=== PATIENT | female | born 1955 | race Caucasian/White ===

== ENCOUNTER 2017-02-27 13:33 | Emergency (ER) | payer BC, OTHER ==
[~2017-02-27] VITALS: Ht 157.5 cm; Wt 45.5 kg
[~2017-02-27 13:33] MED LIST: LORTA5 PO
[2017-02-27 13:34] VITALS: BP 196/91; PULSE 101; RESP 20; TEMP 98.4; O2SAT 96
--- NOTE | 2017-02-27 14:25 | RADRPT ---
EXAM DATE/TIME: 02/27/2017 14:13 [facility] COMPARISON: No previous studies available for comparison. INDICATIONS : Short of breath. MEDICAL HISTORY : None. SURGICAL HISTORY : None. ENCOUNTER: Initial ACUITY: 3 days PAIN SCORE: 0/10 LOCATION: Bilateral chest FINDINGS: Emphysematous changes are noted bilaterally. No infiltrate is noted. No pulmonary vascular congestion is noted. Bibasilar pleural thickening and/or tiny pleural effusions are noted. CONCLUSION: 1. Emphysematous changes bilaterally. 2. Pleural thickening and/or tiny pleural effusions bilaterally. 3. No focal infiltrate or pulmonary vascular congestion. Narayan Barraza MD on February 27, 2017 at 14:21 Board Certified Radiologist. This report was verified electronically.
[2017-02-27] MEDS ORDERED: predniSONE 20 MG TAB PO ONE (15:00)
--- NOTE | 2017-02-27 15:04 | PD ---
HPI Chief Complaint: Cold / Flu Symptoms Time Seen by Provider: 14:48 Travel History International Travel<30 days: No Contact w/Intl Traveler<30days: No Traveled to known affect area: No History of Present Illness HPI 61-year-old female presents the emergency department with chills, cough, shortness of breath with productive cough over the past 3 days. Patient states she was fine and then all of a sudden she was sick starting Saturday. Patient has orthopnea with inability to lay flat due to her cough. She denies significant chest pain however. She has no nausea or vomiting or upper respiratory symptoms. She is a long-term smoker who continues to smoke occasionally. She states she has never had to take prednisone or inhalers in the past. Vital signs are stable except for a pulse of 101, and mild hypertension. O2 sat is 96% on room air. Patient is able to speak in short sentences. Chest x- ray was ordered in triage. She has no known drug allergies. PFSH Past Medical History Cancer: No Cardiovascular Problems: No Diabetes: No Diminished Hearing: No Endocrine: No Genitourinary: No Hepatitis: No Hiatal Hernia: No Immune Disorder: No Musculoskeletal: No Neurologic: No Psychiatric: No Reproductive: No Respiratory: No Thyroid Disease: No Menopausal: Yes Past Surgical History Abdominal Surgery: Yes (LAP. [place], PARTIAL BOWEL RESECT./ COLOSTOMY) AICD: No Cholecystectomy: Yes (APR 02, 2013) Joint Replacement: No Pacemaker: No Social History Alcohol Use: No Tobacco Use: Yes Substance Use: No Allergies-Medications (Allergen,Severity, Reaction): Coded Allergies: No Known Allergies (Unverified , 08/18/13) Reported Meds & Prescriptions Reported Meds & Active Scripts Active Ventolin Hfa 18 GM Inh (Albuterol Sulfate) 90 Mcg/Act Aer 2 Puff INH Q4-6H PRN Prednisone 20 Mg Tab 20 Mg PO BID 7 Days Azithromycin 500 Mg Tab 500 Mg PO DAILY Reported Hydrocodone/Acetaminophen 5 mg/325 mg Acetaminophen 325/5 Hydrocodone Tab 1 Tab PO Q4H PRN Review of Systems Except as stated in HPI: all other systems reviewed are Neg General / Constitutional: Positive: Chills, No: Fever Eyes: No: Visual changes HENT: No: Headaches Cardiovascular: No: Chest Pain or Discomfort Respiratory: Positive: Cough, Shortness of Breath, Wheezing, Orthopnea, Other ( purulent mucus with productive cough), No: Sneezing, Hemoptysis, Stridor, Night Sweats, Pleuritic Pain Gastrointestinal: No: Abdominal Pain Genitourinary: No: Dysuria Musculoskeletal: No: Pain Skin: No Rash Neurologic: No: Weakness Psychiatric: No: Depression Endocrine: No: Polydipsia Hematologic/Lymphatic: No: Easy Bruising Physical Exam Narrative GENERAL: Patient appears in no obvious distress. SKIN: Warm and dry. Mild pallor. Normal turgor. HEAD: Atraumatic. Normocephalic. EYES: Pupils equal and round. No scleral icterus. No injection or drainage. ENT: No nasal bleeding or discharge. Mucous membranes pink and moist. Pharynx is clear. Airway is patent. NECK: Trachea midline. No JVD. Supple and nontender. CARDIOVASCULAR: Regular rate and rhythm. No murmurs gallops or rubs. RESPIRATORY: No accessory muscle use. Diffuse wheezes and rhonchi throughout To auscultation. Breath sounds equal bilaterally. GASTROINTESTINAL: Abdomen soft, non-tender, nondistended. Hepatic and splenic margins not palpable. MUSCULOSKELETAL: Extremities without clubbing, cyanosis, or edema. No obvious deformities. NEUROLOGICAL: Awake and alert. No obvious cranial nerve deficits. Motor grossly within normal limits. Five out of 5 muscle strength in the arms and legs. Normal speech. PSYCHIATRIC: Appropriate mood and affect; insight and judgment normal. Data Data Last Documented VS Vital Signs Date Time Temp Pulse Resp B/P (MAP) Pulse Ox O2 Delivery O2 Flow Rate FiO2 02/27/17 13:34 98.4 101 20 196/91 (126) 96 Room Air Orders Orders Chest, Pa & Lat (02/27/17 ) Ecg Monitoring (02/27/17 14:52) Oximetry (02/27/17 14:52) Oxygen Administration (02/27/17 14:52) Albuterol-Ipratropium Neb (Duoneb Neb) (02/27/17 15:00) Prednisone (Deltasone) (02/27/17 15:00) Influenzae A/B Antigen (02/27/17 14:52) Ceftriaxone Inj (Rocephin Inj) (02/27/17 15:00) [facility] Medical Decision Making Medical Screen Exam Complete: Yes Emergency Medical Condition: Yes Medical Record Reviewed: Yes Differential Diagnosis Influenza. Bronchitis. Pneumonia. Wheezing. Narrative Course Patient is medically stable at time of exam. Labs are ordered including only rapid influenza. Patient is given 60 mg prednisone by mouth as well as DuoNeb 3. Patient is given 1000 mg Rocephin IV. Patient is given 500 mg of azithromycin by mouth. Chest x-ray ordered in triage shows: 1. Emphysematous changes bilaterally. 2. Pleural thickening and/or tiny pleural effusions bilaterally. 3. No focal infiltrate or pulmonary vascular congestion. Rapid influenza is negative. Patient is felt to be stable for discharge. Patient will be continued on prednisone 20 mg twice a day 7 days. Patient also given albuterol metered-dose inhaler. 2 puffs every 4-6 hours. Patient also continued on azithromycin 500 mg daily for 5 days. Patient should quit smoking immediately. Patient should follow with her primary care physician or return to emergency Department with worsening symptoms as needed. Diagnosis Primary Impression: Pneumonia Qualified Codes: J18.9 - Pneumonia, unspecified organism Additional Impression: COPD with acute exacerbation Referrals: Primary Care Physician Patient Instructions: Acute Bronchitis (ED), General Instructions, How to Use a Metered-Dose Inhaler (ED) Additional Instructions: Patient is given 1000 mg Rocephin IV. Patient is given 500 mg of azithromycin by mouth. Chest x-ray ordered in triage shows: 1. Emphysematous changes bilaterally. 2. Pleural thickening and/or tiny pleural effusions bilaterally. 3. No focal infiltrate or pulmonary vascular congestion. Rapid influenza is negative. Patient is felt to be stable for discharge. Patient will be continued on prednisone 20 mg twice a day 7 days. Patient also given albuterol metered-dose inhaler. 2 puffs every 4-6 hours. Patient also continued on azithromycin 500 mg daily for 5 days. Patient should quit smoking immediately. Patient should follow with her primary care physician or return to emergency Department with worsening symptoms as needed. Med/Other Pt SpecificInfo: Prescription(s) given Scripts Albuterol 18 GM Inh (Ventolin Hfa 18 GM Inh) 90 Mcg/Act Aer 2 PUFF INH Q4-6H Y for SHORTNESS OF BREATH, #1 INHALER 0 Refills Prov: Yaneth Hussein MD 02/27/17 Prednisone (Prednisone) 20 Mg Tab 20 MG PO BID for 7 Days, #14 TAB 0 Refills Prov: Yaneth Hussein MD 02/27/17 Azithromycin (Azithromycin) 500 Mg Tab 500 MG PO DAILY for Infection, #5 TAB 0 Refills Prov: Yaneth Hussein MD 02/27/17 Disposition: 01 DISCHARGE HOME Condition: Stable Kolby Corbin Feb 27, 2017 15:04
--- NOTE | 2017-02-27 15:57 | PD ---
Physical Exam Date Seen by Provider: Feb 27, 2017 Narrative This patient presents with a three-day history of cough and cold symptoms. She looks well. Data Data Last Documented VS Vital Signs Date Time Temp Pulse Resp B/P (MAP) Pulse Ox O2 Delivery O2 Flow Rate FiO2 02/27/17 13:34 98.4 101 20 196/91 (126) 96 Room Air Orders Orders Chest, Pa & Lat (02/27/17 ) Ecg Monitoring (02/27/17 14:52) Oximetry (02/27/17 14:52) Oxygen Administration (02/27/17 14:52) Albuterol-Ipratropium Neb (Duoneb Neb) (02/27/17 15:00) Prednisone (Deltasone) (02/27/17 15:00) Influenzae A/B Antigen (02/27/17 14:52) Ceftriaxone Inj (Rocephin Inj) (02/27/17 15:00) MDM Supervised Visit with [place]: Yes Narrative Course I, Dr. Hussein, have reviewed the advance practice practitioner's documentation and am in agreement, met with the patient face to face, made the diagnosis, and the medical decision making was done by me. *My assessment and Findings: This patient is awake and alert and in no acute distress. Please see Paul Corbin PA-C's note for results of laboratory and radiographic evaluation, ED course, final diagnosis and disposition Condition: Stable Yaneth Hussein MD Feb 27, 2017 15:57
[2017-02-27] MEDS: RESP: ALBUTEROL 2.5 MG/IPRATROPIUM 0.5 MG NEB (SCH) INH (16:04)
[2017-02-27] MEDS ORDERED: AZIT500T2 PO (16:51)
[2017-02-27] MEDS ORDERED: VENTAER INH (16:51)
[2017-02-27] MEDS ORDERED: PRED20 PO (16:51)
== END 2017-02-27 23:18 | disposition home or self-care (01) ==
LOC: NEPD 13:33
DX: J44.1 Chronic obstructive pulmonary disease with (acute) exacerbation (principal); J44.0 Chronic obstructive pulmonary disease with (acute) lower respiratory infection; J18.9 Pneumonia, unspecified organism; Z72.0 Tobacco use; I10 Essential (primary) hypertension
CPT/HCPCS: 71046; 87804; 94640; 94664; 96372; 99284; J0696; J7512

== ENCOUNTER 2017-03-08 11:38 | Emergency (ER) | payer BC ==
[~2017-03-08] VITALS: Ht 157.5 cm; Wt 45.5 kg
[~2017-03-08 11:38] MED LIST changes: +AZIT500T2 PO; +PRED20 PO; +VENTAER INH
[2017-03-08 11:41] VITALS: BP 164/72; PULSE 87; RESP 16; TEMP 98.4; O2SAT 98
--- NOTE | 2017-03-08 13:10 | RADRPT ---
EXAM DATE/TIME: 03/08/2017 12:50 [facility] COMPARISON: CHEST PA & LAT, February 27, 2017, 14:13. INDICATIONS : Shortness of breath and coughing. MEDICAL HISTORY : Diverticulitis. Bronchitis, Pneumonia. SURGICAL HISTORY : None. ENCOUNTER: Initial ACUITY: 1 week PAIN SCORE: 0/10 LOCATION: Bilateral chest FINDINGS: Frontal and lateral views of the chest demonstrate a normal-sized cardiac silhouette. Lungs are hyper expanded. No pleural effusion, airspace consolidation, or pneumothorax is identified. The bones and s oft tissues demonstrate no acute finding. CONCLUSION: Stable chest x-ray. No acute cardiopulmonary abnormality is identified. Background lung changes are c haracteristic of obstructive airways disease. Marcus Perdomo MD on March 08, 2017 at 13:06 Board Certified Radiologist. This report was verified electronically.
[2017-03-08] MEDS ORDERED: SODIUM CHLORIDE 0.9% FLUSH 10 ML FLUSH IVF PRN (14:15)
[2017-03-08] MEDS ORDERED: FUROSEMIDE 40 MG/4 ML VIAL IVP ONE (14:15)
[2017-03-08] MEDS ORDERED: methylPREDNISolone SOD SUCC 125 MG/2 ML VIAL IV PUSH ONE (14:15)
[2017-03-08] MEDS: RESP: ALBUTEROL 2.5 MG/IPRATROPIUM 0.5 MG NEB (SCH) INH (14:21)
--- NOTE | 2017-03-08 14:25 | PD ---
HPI Chief Complaint: Edema Time Seen by Provider: 14:07 Travel History International Travel<30 days: No Contact w/Intl Traveler<30days: No Traveled to known affect area: No History of Present Illness HPI 61-year-old female with history of COPD, and recent treatment for pneumonia, potassium Department with increasing shortness of breath, wet cough, and bilateral pedal edema. Patient denies fever, chills, nausea, vomiting, or chest pain. She is unable to sleep flat at night secondary to her shortness of breath. She has no cardiac history. She states the swelling in her leg started approximately 2 days ago and worsened in the past 24 hours. The swelling in her feet did not go down overnight as she had to sit up due to her breathing. She does not have a nebulizer at home but has an using a metered- dose inhaler with some relief. She does still smoke one to 2 cigarettes per day. Patient has no known drug allergies. PFSH Past Medical History Cancer: No Cardiovascular Problems: No Diabetes: No Diminished Hearing: No Endocrine: No Gastrointestinal Disorders: Yes (HX DIVERTICULITIS/ COLOSTOMY) Genitourinary: No Hepatitis: No Hiatal Hernia: No Immune Disorder: No Medical other: Yes (TRANSIENT ITCH (UNKNOWN IDIOLOGY)) Musculoskeletal: No Neurologic: No Psychiatric: No Reproductive: No Respiratory: No Pneumonia: Yes Thyroid Disease: No Menopausal: Yes Past Surgical History Abdominal Surgery: Yes (LAP. [place], PARTIAL BOWEL RESECT./ COLOSTOMY) AICD: No Cholecystectomy: Yes (APR 02, 2013) Joint Replacement: No Pacemaker: No Other Surgery: Yes Social History Alcohol Use: No Tobacco Use: Yes Substance Use: No Allergies-Medications (Allergen,Severity, Reaction): Coded Allergies: No Known Allergies (Unverified Adverse Reaction, Unknown, 03/08/17) Reported Meds & Prescriptions Reported Meds & Active Scripts Active Advair Diskus Inh (Fluticasone-Salmeterol Inh) 250-50 Mcg/Blist Aer 1 Puff INH BID Rinse mouth after use. Ipratropium Neb (Ipratropium [place]) 0.5 Mg/2.5 Ml Amp 0.5 Mg NEB Q6HR NEB PRN Albuterol Neb (Albuterol Sulfate) 2.5 Mg/3 Ml Neb 2.5 Mg NEB QID NEB Nebulizer 1 Mis Mis Ea .ROUTE DIRECTED Azithromycin 500 Mg Tab 500 Mg PO DAILY Ventolin Hfa 18 GM Inh (Albuterol Sulfate) 90 Mcg/Act Aer 2 Puff INH Q4-6H PRN Prednisone 20 Mg Tab 20 Mg PO BID 7 Days Azithromycin 500 Mg Tab 500 Mg PO DAILY Review of Systems Except as stated in HPI: all other systems reviewed are Neg General / Constitutional: No: Fever, Chills Eyes: No: Visual changes HENT: No: Headaches Cardiovascular: Positive: Edema, No: Chest Pain or Discomfort, Palpitations, Irregular Rhythm, Tachycardia, Syncope Respiratory: Positive: Cough, Shortness of Breath, Wheezing, No: Sneezing, Orthopnea, Hemoptysis Gastrointestinal: No: Abdominal Pain Genitourinary: No: Dysuria Musculoskeletal: No: Pain Skin: No Rash Neurologic: No: Weakness Psychiatric: No: Depression Endocrine: No: Polydipsia Hematologic/Lymphatic: No: Easy Bruising Physical Exam Narrative GENERAL: Patient appears in mild respiratory distress. SKIN: Warm and dry. Decreased pallor. Normal turgor. Question of Raynaud's phenomenon on both lower extremities with itching and distal redness of all toes on both feet. Nontender. HEAD: Atraumatic. Normocephalic. EYES: Pupils equal and round. No scleral icterus. No injection or drainage. ENT: No nasal bleeding or discharge. Mucous membranes pink and moist. TMs are clear bilaterally. No sinusitis tenderness. Pharynx is clear. Airway is patent. NECK: Trachea midline. Supple and nontender. CARDIOVASCULAR: Regular rate and rhythm. RESPIRATORY: No accessory muscle use. Diffuse wheezes and rales or rhonchi noted to auscultation. Breath sounds equal bilaterally. GASTROINTESTINAL: Abdomen soft, non-tender, nondistended. Hepatic and splenic margins not palpable. MUSCULOSKELETAL: Extremities without clubbing, cyanosis, or 2+ bilateral pitting edema. No obvious deformities. No tenderness with palpation of the lower extremity. Negative Homans sign bilaterally. NEUROLOGICAL: Awake and alert. No obvious cranial nerve deficits. Motor grossly within normal limits. Five out of 5 muscle strength in the arms and legs. Normal speech. PSYCHIATRIC: Appropriate mood and affect; insight and judgment normal. Data Data Last Documented VS Vital Signs Date Time Temp Pulse Resp B/P (MAP) Pulse Ox O2 Delivery O2 Flow Rate FiO2 03/08/17 11:41 98.4 87 16 164/72 (102) 98 Orders Orders Basic Metabolic Panel (Bmp) (03/08/17 12:23) Complete Blood Count With Diff (03/08/17 12:23) Prothrombin Time / Inr (Pt) (03/08/17 12:23) Act Partial Throm Time (Ptt) (03/08/17 12:23) Electrocardiogram (03/08/17 ) Chest, Pa & Lat (03/08/17 ) B-Type Natriuretic Peptide (03/08/17 12:23) Creatine Kinase (Cpk) (03/08/17 12:23) Troponin I (03/08/17 12:23) Magnesium (Mg) (03/08/17 12:23) Iv Access Insert/Monitor (03/08/17 14:14) Ecg Monitoring (03/08/17 14:14) Oximetry (03/08/17 14:14) Oxygen Administration (03/08/17 14:14) Sodium Chloride 0.9% Flush (Ns Flush) (03/08/17 14:15) Furosemide Inj (Lasix Inj) (03/08/17 14:15) Methylprednisolone So Succ Inj (Solumedr (03/08/17 14:15) Albuterol-Ipratropium Neb (Duoneb Neb) (03/08/17 14:15) Labs Laboratory Tests Test 03/08/17 13:50 White Blood Count 12.8 TH/MM3 Red Blood Count 4.91 MIL/MM3 Hemoglobin 14.7 GM/DL Hematocrit 44.9 % Mean Corpuscular Volume 91.5 FL Mean Corpuscular Hemoglobin 29.9 PG Mean Corpuscular Hemoglobin Concent 32.6 % Red Cell Distribution Width 14.4 % Platelet Count 403 TH/MM3 Mean Platelet Volume 6.6 FL Neutrophils (%) (Auto) 85.9 % Lymphocytes (%) (Auto) 4.3 % Monocytes (%) (Auto) 8.5 % Eosinophils (%) (Auto) 1.2 % Basophils (%) (Auto) 0.1 % Neutrophils # (Auto) 11.0 TH/MM3 Lymphocytes # (Auto) 0.5 TH/MM3 Monocytes # (Auto) 1.1 TH/MM3 Eosinophils # (Auto) 0.2 TH/MM3 Basophils # (Auto) 0.0 TH/MM3 CBC Comment DIFF FINAL Differential Comment Prothrombin Time 11.1 SEC Prothromb Time International Ratio 1.1 RATIO Activated Partial Thromboplast Time 23.8 SEC Blood Urea Nitrogen 24 MG/DL Creatinine 1.16 MG/DL Random Glucose 84 MG/DL Calcium Level 9.1 MG/DL Magnesium Level 2.2 MG/DL Sodium Level 140 MEQ/L Potassium Level 5.0 MEQ/L Chloride Level 105 MEQ/L Carbon Dioxide Level 29.3 MEQ/L Anion Gap 6 MEQ/L Estimat Glomerular Filtration Rate 47 ML/MIN Total Creatine Kinase 72 U/L Troponin I LESS THAN 0.02 NG/ML B-Type Natriuretic Peptide 93 PG/ML [facility] Medical Decision Making Medical Screen Exam Complete: Yes Emergency Medical Condition: Yes Medical Record Reviewed: Yes Differential Diagnosis CHF. COPD with exacerbation. Wheezing. Narrative Course Patient is medically stable at time of exam. EKG shows sinus rhythm with right atrial enlargement. Laboratory included CBC, CMP, proBNP, cardiac panel, magnesium. IV access is obtained, patient is given 40 mg Lasix IV as well as DuoNeb 3. Chest x-ray shows no acute changes per radiologist. CBC shows leukocytosis of 12.8. EKG shows sinus rhythm without significant ST-T changes. CMP is essentially unremarkable. Patient is ambulated and found to keep her O2 sats above 92%. Patient is discussed with Dr. Parr. She is felt to be stable for discharge home. Patient will be started with a nebulizer, with albuterol every 4 hours when necessary wheezing. Patient is to use ipratropium bromide per nebulizer every 6 hours as well. Patient is started on Advair is deeper 50 one puff twice a day. Patient is given azithromycin 500 mg daily 5 days. Patient is given prednisone 20 mg twice a day 5 days. Recommend patient follow up with Dr. Kessler, the [facility] faculty assistant who is on-call today. Patient should quit smoking immediately. Patient can return to emergency Department with worsening symptoms if necessary. Diagnosis Primary Impression: COPD exacerbation Additional Impression: COPD with acute bronchitis Referrals: Checo Kessler MD Patient Instructions: General Instructions, How to Use a Nebulizer (ED) Additional Instructions: Patient will be started with a nebulizer, with albuterol every 4 hours when necessary wheezing. Patient is to use ipratropium bromide per nebulizer every 6 hours as well. Patient is started on Advair is deeper 50 one puff twice a day. Patient is given azithromycin 500 mg daily 5 days. Patient is given prednisone 20 mg twice a day 5 days. Recommend patient follow up with Dr. Kessler, the [facility] faculty assistant who is on-call today. Patient should quit smoking immediately. Patient can return to emergency Department with worsening symptoms if necessary. Med/Other Pt SpecificInfo: Prescription(s) given Scripts Fluticasone-Salmeterol Inh (Advair Diskus Inh) 250-50 Mcg/Blist Aer 1 PUFF INH BID, #1 INHALER 0 Refills Rinse mouth after use. Prov: Miguel Sherman MD 03/08/17 Ipratropium Neb (Ipratropium Neb) 0.5 Mg/2.5 Ml Amp 0.5 MG NEB Q6HR NEB Y for SHORTNESS OF BREATH, #120 NEBULE 0 Refills Prov: Miguel Sherman MD 03/08/17 Albuterol Neb (Albuterol Neb) 2.5 Mg/3 Ml Neb 2.5 MG NEB QID NEB for Breathing Treatment, #120 NEBULE 0 Refills Prov: Miguel Sherman MD 03/08/17 Nebulizer (Nebulizer) 1 Mis Mis EA .ROUTE DIRECTED for Breathing Treatment, #1 0 Refills Prov: Miguel Sherman MD 03/08/17 Azithromycin (Azithromycin) 500 Mg Tab 500 MG PO DAILY for Infection, #5 TAB 0 Refills Prov: Miguel Sherman MD 03/08/17 Disposition: 01 DISCHARGE HOME Condition: Stable Kolby Corbin Mar 08, 2017 14:25
[2017-03-08 14:38] LABS: BASOPHIL % 0.1 % (0.0-2.0); EOSINOPHIL # 0.2 TH/MM3 (0-0.4); EOSINOPHIL % 1.2 % (0.0-4.0); HEMATOCRIT 44.9 % (35.0-46.0); HEMOGLOBIN 14.7 GM/DL (11.6-15.3); LYMPH % 4.3 % (9.0-44.0); LYMPHOCYTE # 0.5 TH/MM3 (1.0-4.8); MEAN CELL VOLUME 91.5 FL (80.0-100.0); MEAN CORPUSCULAR HEMOGLOBIN 29.9 PG (27.0-34.0); MEAN CORPUSCULAR HGB CONC 32.6 % (32.0-36.0); MEAN PLATELET VOLUME 6.6 FL (7.0-11.0); MONO % 8.5 % (0.0-8.0); MONOCYTE # 1.1 TH/MM3 (0-0.9); NEUT % 85.9 % (16.0-70.0); PLATELET COUNT 403 TH/MM3 (150-450); RED BLOOD COUNT 4.91 MIL/MM3 (4.00-5.30); RED CELL DISTRIBUTION WIDTH 14.4 % (11.6-17.2); WHITE BLOOD COUNT 12.8 TH/MM3 (4.0-11.0)
[2017-03-08 14:50] LABS: INTERNATIONAL NORMALIZED RATIO 1.1 RATIO; PROTHROMBIN TIME - PATIENT 11.1 SEC (9.8-11.6)
[2017-03-08 15:07] LABS: BICARBONATE 29.3 MEQ/L (21.0-32.0); BLOOD UREA NITROGEN 24 MG/DL (7-18); CALCIUM 9.1 MG/DL (8.5-10.1); CHLORIDE 105 MEQ/L (98-107); CREATININE 1.16 MG/DL (0.50-1.00); GLOMERULAR FILTRATION RATE 47 ML/MIN (>89); GLUCOSE,RANDOM 84 MG/DL (74-106); MAGNESIUM 2.2 MG/DL (1.5-2.5); SODIUM (NA) 140 MEQ/L (136-145)
[2017-03-08 15:11] LABS: TROPONIN I LESS THAN 0.02 NG/ML (0.02-0.05)
[2017-03-08] MEDS ORDERED: ADVA250A INH (15:35)
[2017-03-08] MEDS ORDERED: AZIT500T2 PO (15:35)
[2017-03-08] MEDS ORDERED: IPRA0.02 NEB (15:35)
[2017-03-08] MEDS ORDERED: ALBU0.08 NEB (15:35)
[2017-03-08] MEDS ORDERED: NEBULIZER1 MI1 (15:35)
[2017-03-08 15:41] VITALS: O2SAT 94
[2017-03-08 15:50] VITALS: BP 151/67; PULSE 89; RESP 21; O2SAT 94
--- NOTE | 2017-03-09 16:26 | EKG ---
Date Performed: 03/08/2017 Time Performed: 13:57:05 PTAGE: 61 years EKG: Sinus rhythm RIGHT ATRIAL ENLARGEMENT POSSIBLE RIGHT VENTRICULAR HYPERTROPHY Compared to previous tracing, Right atrial abnormality new ABNORMAL ECG PREVIOUS TRACING : 08/17/2013 11.10 DOCTOR: Xavier Nevarez Interpretating Date/Time 03/09/2017 16:25:20
== END 2017-03-08 16:00 | disposition home or self-care (01) ==
LOC: NEPC 11:38
DX: J44.1 Chronic obstructive pulmonary disease with (acute) exacerbation (principal); J44.0 Chronic obstructive pulmonary disease with (acute) lower respiratory infection; J20.9 Acute bronchitis, unspecified; F17.210 Nicotine dependence, cigarettes, uncomplicated; R94.31 Abnormal electrocardiogram [ECG] [EKG]
CPT/HCPCS: 71046; 80048; 82550; 83735; 83880; 84484; 85025; 85610; 85730; 93005; 94640; 94664; 96374; 96375; 99284; J1940; J2930

== ENCOUNTER 2018-01-07 07:33 | Inpatient (IN) ==
--- NOTE | 2018-01-07 08:22 | ED ---
HPI General Chief Complaint: Anxiety Stated Complaint: weakness Time Seen by Provider: 01/07/18 08:08 Source: patient Mode of arrival: ambulatory Limitations: no limitations History of Present Illness Acute onset of shortness of breath onset at approximately 2 in the morning today , patient tried use pills for relaxation and try to take deep breath but she was unable to to get any improvement. 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 Patient denies any productive cough, fever, body aches, weight loss, hemoptysis, at this present time. Patient also denies using any home oxygen. Upon arrival the patient was noted to be to have a pulse ox in 86-87 range on room air quickly placed on 2 L which improved her pulse ox to 94-96 Related Data Home Medications Medication Instructions Recorded Confirmed albuterol sulfate 2.5 mg INHALATION Q4H PRN 01/07/18 01/07/18 Allergies Allergy/AdvReac Type Severity Reaction Status Date / Time No Known Allergies Allergy Verified 01/07/18 08:10 Review of Systems ROS: all other systems reviewed are negative [facility] Medical History Medical History COPD (chronic obstructive pulmonary disease) (Acute) Social History Social History Substance History: No History of Abuse Second Hand Smoke Exposure: No Smoking Status: Current every day smoker Tobacco Type: Cigarettes How Often Do You Have a Drink Containing Alcohol: Never Recent Travel in [facility] within the Last 8 Weeks: No Recent Out of Country Travel within the Last 8 Weeks: No Immunization History Tetanus Immunization: Unsure Exam Narrative Exam Narrative: GENERAL: Elderly female in moderate respiratory distress SKIN: Warm and dry. HEAD: Atraumatic. Normocephalic. EYES: Pupils equal and round. No scleral icterus. No injection or drainage. ENT: No nasal bleeding or discharge. Mucous membranes pink and moist. NECK: Trachea midline. No JVD. CARDIOVASCULAR: Regular rate and rhythm. no rubs or gallops RESPIRATORY: Suprasternal accessory muscle use. Diminished tidal volume, bilateral rhonchi/wheezing . GASTROINTESTINAL: Abdomen soft, non-tender, nondistended. No rebound or guarding MUSCULOSKELETAL: Extremities without clubbing, cyanosis, or edema. No obvious deformities. NEUROLOGICAL: Awake and alert. No obvious cranial nerve deficits. Motor grossly within normal limits. Five out of 5 muscle strength in the arms and legs. Normal speech. PSYCHIATRIC: Appropriate mood and affect; insight and judgment normal. Course Initial Documented Vital Signs Temperature 97.0 F L 01/07/18 07:45 Pulse Rate 98 H 01/07/18 07:45 Respiratory Rate 28 H 01/07/18 07:45 Blood Pressure 169/75 H 01/07/18 07:45 Pulse Oximetry 85 L 01/07/18 07:45 Last Documented Vital Signs Temperature 98.1 F 01/08/18 06:00 Pulse Rate 70 01/08/18 06:00 Respiratory Rate 17 01/08/18 06:00 Blood Pressure 173/77 H 01/08/18 06:00 Pulse Oximetry 100 01/08/18 06:00 Critical Care Time Critical Care Time: Yes Total Critical Care Time: 60 Attestation: Aggregate critical care time was 60 minutes. Time to perform other separately billable procedures was not included in the critical care time. My time did not include minutes spent treating any other patients simultaneously or on activities that did not directly contribute to the patient's treatment. The services I provided to this patient were to treat and/or prevent clinically significant deterioration I provided critical care services requiring my management, as noted below: Chart data review, documentation time, medication orders and management, vital sign assessments/reviewing monitor data, ordering and reviewing lab tests, ordering and interpreting/reviewing x-rays and diagnostic studies, care of the patient and discussion of the patient with the admitting physicians. Medical Decision Making MDM Narrative Medical decision making narrative: Leukocytosis 19,000 with 89% neutrophilia, no anemia, normal platelet count Normal coagulation profile ABG shows respiratory acidosis 7.24 PCO2 of 56 PaO2 of 84 on 2 L nasal cannula normal hemoglobin Negative alcohol level Patient has a negative troponin however CK-MB is slightly elevated at 9.3, however CK-MB percentage is still pending, normal beta natruretic peptide Normal electrolytes, slightly elevated TSH suspicious for hypothyroidism Elevated random glucose of 178, elevated creatinine of 1.64, decreased GFR 32. Chest x-ray read by radiologist as advanced COPD due to the patient's poor renal functions, the patient will will have her CAT scan PE replaced with a VQ scan VQ scan read as low probability for PE by radiologist After 2 hours on BiPAP patient had a repeat ABG which showed correction of the respiratory acidosis and CO2 retention, however still showed some degree of hypoxemia with a PaO2 of 64 despite patient being on 2 L nasal cannula. Patient will be continued on oxygen and adjusted. Patient will be admitted for hypoxemic respiratory failure, COPD exacerbation, rule out pneumonia Medical Screen Exam Complete: Yes Emergency Medical Condition: Yes Lab Data Result diagrams: 01/07/18 08:18 01/07/18 08:18 Lab Results 01/07/18 01/07/18 01/07/18 Range/Units 08:18 08:18 08:18 WBC 19.4 H (4.0-11.0) th/mm3 RBC 4.90 (4.00-5.30) mil/mm3 Hgb 15.0 (11.6-15.3) gm/dL Hct 45.4 (35.0-46.0) % MCV 92.8 (80.0-100.0) fL MCH 30.7 (27.0-34.0) pg MCHC 33.1 (32.0-36.0) % RDW 14.2 (11.6-17.2) % Plt Count 452 H (150-450) th/mm3 MPV 7.1 (7.0-11.0) fL Neut % (Auto) 89.4 H (16.0-70.0) % Lymph % (Auto) 3.0 L (9.0-44.0) % [place] % (Auto) 7.6 (0.0-8.0) % Eos % (Auto) 0.0 (0.0-4.0) % Baso % (Auto) 0.0 (0.0-2.0) % Neut # (Auto) 17.4 H (1.8-7.7) th/mm3 Lymph # (Auto) 0.6 L (1.0-4.8) th/mm3 [place] # (Auto) 1.5 H (0.0-0.9) th/mm3 Eos # (Auto) 0.0 (0.0-0.4) th/mm3 Baso # (Auto) 0.0 (0.0-0.2) th/mm3 WBC Differential . Differential Comment Auto diff final PT 10.7 (9.8-11.6) sec INR 1.1 Ratio APTT 23.6 (23.4-31.7) sec Puncture Site Patient Temperature O2 Saturation (90-100) % ABG pH (7.380-7.420) ABG pCO2 (38-42) mmHg ABG pO2 (61-120) mmHg ABG HCO3 (22-26) mmol/L ABG O2 Content (12.0-20.0) Vol % ABG Base Excess (-2-2) mmol/L ABG Methemoglobin (0-2) % Cuco Test Hemoglobin (12.0-16.0) G/DL Carboxyhemoglobin (0-4) % O2 Delivery Device Liter Flow L/M Critical Value Sodium (136-145) meq/L Potassium (3.5-5.1) meq/L Chloride (98-107) meq/L Carbon Dioxide (21.0-32.0) meq/L Anion Gap (5-15) meq/L BUN (7-18) mg/dL Creatinine (0.50-1.00) mg/dL Estimated GFR (>89) mL/min Random Glucose (74-106) mg/dL Calcium (8.5-10.1) mg/dL Total Bilirubin (0.2-1.0) mg/dL AST (15-37) U/L ALT (10-53) U/L Alkaline Phosphatase (45-117) U/L Total Creatine Kinase (26-192) U/L CK-MB (CK-2) (0.5-3.6) ng/mL Troponin I (0.02-0.05) ng/mL B-Natriuretic Peptide 83 (0-100) pg/mL Total Protein (6.4-8.2) g/dL Albumin (3.4-5.0) g/dL Lipase (73-393) U/L TSH (0.358-3.740) uIU/mL Nasal Screen MRSA (PCR) (Negative) Serum Alcohol (0-5) mg/dL 01/07/18 01/07/18 01/07/18 Range/Units 08:18 08:20 12:00 WBC (4.0-11.0) th/mm3 RBC (4.00-5.30) mil/mm3 Hgb (11.6-15.3) gm/dL Hct (35.0-46.0) % MCV (80.0-100.0) fL MCH (27.0-34.0) pg MCHC (32.0-36.0) % RDW (11.6-17.2) % Plt Count (150-450) th/mm3 MPV (7.0-11.0) fL Neut % (Auto) (16.0-70.0) % Lymph % (Auto) (9.0-44.0) % [place] % (Auto) (0.0-8.0) % Eos % (Auto) (0.0-4.0) % Baso % (Auto) (0.0-2.0) % Neut # (Auto) (1.8-7.7) th/mm3 Lymph # (Auto) (1.0-4.8) th/mm3 [place] # (Auto) (0.0-0.9) th/mm3 Eos # (Auto) (0.0-0.4) th/mm3 Baso # (Auto) (0.0-0.2) th/mm3 WBC Differential Differential Comment PT (9.8-11.6) sec INR Ratio APTT (23.4-31.7) sec Puncture Site Right brachial Right brachial Patient Temperature 98.6 98.6 O2 Saturation 91 89 L* (90-100) % ABG pH 7.24 L* 7.33 L (7.380-7.420) ABG pCO2 56 H* 42 (38-42) mmHg ABG pO2 84 65 (61-120) mmHg ABG HCO3 23 22 (22-26) mmol/L ABG O2 Content 17.6 16.2 (12.0-20.0) Vol % ABG Base Excess -3.4 L -3.2 L (-2-2) mmol/L ABG Methemoglobin 0.7 0.8 (0-2) % Cuco Test Present Present Hemoglobin 13.6 12.9 (12.0-16.0) G/DL Carboxyhemoglobin 2.3 1.8 (0-4) % O2 Delivery Device Nasal cannula Nasal cannula Liter Flow 2.00 2.00 L/M Critical Value Yes Yes Sodium 140 (136-145) meq/L Potassium 3.7 (3.5-5.1) meq/L Chloride 107 (98-107) meq/L Carbon Dioxide 22.2 (21.0-32.0) meq/L Anion Gap 11 (5-15) meq/L BUN 28 H (7-18) mg/dL Creatinine 1.64 H (0.50-1.00) mg/dL Estimated GFR 32 L (>89) mL/min Random Glucose 178 H (74-106) mg/dL Calcium 9.1 (8.5-10.1) mg/dL Total Bilirubin 0.3 (0.2-1.0) mg/dL AST 18 (15-37) U/L ALT 18 (10-53) U/L Alkaline Phosphatase 83 (45-117) U/L Total Creatine Kinase 178 (26-192) U/L CK-MB (CK-2) 9.3 H (0.5-3.6) ng/mL Troponin I Less than 0.02 L (0.02-0.05) ng/mL B-Natriuretic Peptide (0-100) pg/mL Total Protein 8.5 H (6.4-8.2) g/dL Albumin 4.6 (3.4-5.0) g/dL Lipase 97 (73-393) U/L TSH 4.810 H (0.358-3.740) uIU/mL Nasal Screen MRSA (PCR) (Negative) Serum Alcohol Less than 3 (0-5) mg/dL 01/07/18 Range/Units 16:00 WBC (4.0-11.0) th/mm3 RBC (4.00-5.30) mil/mm3 Hgb (11.6-15.3) gm/dL Hct (35.0-46.0) % MCV (80.0-100.0) fL MCH (27.0-34.0) pg MCHC (32.0-36.0) % RDW (11.6-17.2) % Plt Count (150-450) th/mm3 MPV (7.0-11.0) fL Neut % (Auto) (16.0-70.0) % Lymph % (Auto) (9.0-44.0) % [place] % (Auto) (0.0-8.0) % Eos % (Auto) (0.0-4.0) % Baso % (Auto) (0.0-2.0) % Neut # (Auto) (1.8-7.7) th/mm3 Lymph # (Auto) (1.0-4.8) th/mm3 [place] # (Auto) (0.0-0.9) th/mm3 Eos # (Auto) (0.0-0.4) th/mm3 Baso # (Auto) (0.0-0.2) th/mm3 WBC Differential Differential Comment PT (9.8-11.6) sec INR Ratio APTT (23.4-31.7) sec Puncture Site Patient Temperature O2 Saturation (90-100) % ABG pH (7.380-7.420) ABG pCO2 (38-42) mmHg ABG pO2 (61-120) mmHg ABG HCO3 (22-26) mmol/L ABG O2 Content (12.0-20.0) Vol % ABG Base Excess (-2-2) mmol/L ABG Methemoglobin (0-2) % Cuco Test Hemoglobin (12.0-16.0) G/DL Carboxyhemoglobin (0-4) % O2 Delivery Device Liter Flow L/M Critical Value Sodium (136-145) meq/L Potassium (3.5-5.1) meq/L Chloride (98-107) meq/L Carbon Dioxide (21.0-32.0) meq/L Anion Gap (5-15) meq/L BUN (7-18) mg/dL Creatinine (0.50-1.00) mg/dL Estimated GFR (>89) mL/min Random Glucose (74-106) mg/dL Calcium (8.5-10.1) mg/dL Total Bilirubin (0.2-1.0) mg/dL AST (15-37) U/L ALT (10-53) U/L Alkaline Phosphatase (45-117) U/L Total Creatine Kinase (26-192) U/L CK-MB (CK-2) (0.5-3.6) ng/mL Troponin I (0.02-0.05) ng/mL B-Natriuretic Peptide (0-100) pg/mL Total Protein (6.4-8.2) g/dL Albumin (3.4-5.0) g/dL Lipase (73-393) U/L TSH (0.358-3.740) uIU/mL Nasal Screen MRSA (PCR) Not detected (Negative) Serum Alcohol (0-5) mg/dL Imaging Data Radiologist's impression: Chest X-Ray 01/07/18 08:09 CONCLUSION: Advanced COPD. Pulmonary Perfusion Imaging 01/07/18 09:35 CONCLUSION: 1. Low probability for pulmonary embolism. 2. COPD. Discharge Plan Discharge Disposition Patient Disposition: 30 Still Patient Discharge Condition Condition: Stable Discharge Details Diagnosis: Acute exacerbation of chronic obstructive pulmonary disease (COPD), Acute on chronic respiratory failure with hypoxemia Physicians Team ED Provider: Brendan Irvin Primary Care Provider: UNKNOWN, Attending Provider: Dung Florez Other Providers: Checo Kessler Status ED Status: Left Department Discharge Information Discharge Date/Time: 01/07/18 13:44
[2018-01-07 08:27] LABS: ABG Base Excess -3.4 mmol/L (-2-2); ABG PCO2 56 mmHg (38-42); ABG PO2 84 mmHg (61-120)
--- NOTE | 2018-01-07 08:38 | XR ---
EXAM DATE: 01/07/2018 8:34 AM EST AGE/SEX: 62 years / Female INDICATIONS: Chest pain. CLINICAL DATA: This is the patient's initial encounter. Patient reports that signs and symptoms have been present for 1 day and indicates a pain score of 5/10. MEDICAL/SURGICAL HISTORY: None. None. COMPARISON: [facility], CHEST PA & LAT, 03/08/2017. . FINDINGS: The heart is normal in size. The mediastinal contours are within normal limits. There are advanced CO PD changes within the pulmonary parenchyma. No suspicious mass lesion is identified. The bony structures are grossly intact. CONCLUSION: Advanced COPD. Electronically signed by: Doug Bojorquez MD 01/07/2018 8:37 AM EST
[2018-01-07 08:43] LABS: Hematocrit 45.4 % (35.0-46.0); Lymph # (Auto) 0.6 th/mm3 (1.0-4.8); Mean Corpuscular HGB Conc 33.1 % (32.0-36.0); Mean Corpuscular Hemoglobin 30.7 pg (27.0-34.0); Mean Corpuscular Volume 92.8 fL (80.0-100.0); Mean Platelet Volume 7.1 fL (7.0-11.0); Mono # (Auto) 1.5 th/mm3 (0.0-0.9); Mono % (Auto) 7.6 % (0.0-8.0); Neut # (Auto) 17.4 th/mm3 (1.8-7.7); Neut % (Auto) 89.4 % (16.0-70.0); Platelet Count 452 th/mm3 (150-450); Red Cell Distribution Width 14.2 % (11.6-17.2); White Blood Count 19.4 th/mm3 (4.0-11.0)
[2018-01-07] MEDS ORDERED: MethylPREDNISolone Sod Succinate Inj 125 MG/2 ML Vial IV.PUSH ONE (08:43)
[2018-01-07 09:01] LABS: Activated Partial Thrombo Time 23.6 sec (23.4-31.7); INR 1.1 Ratio; Prothrombin Time 10.7 sec (9.8-11.6)
[2018-01-07 09:22] LABS: Albumin 4.6 g/dL (3.4-5.0); Anion Gap 11 meq/L (5-15); Aspartate Aminotransferase 18 U/L (15-37); Blood Urea Nitrogen 28 mg/dL (7-18); Calcium 9.1 mg/dL (8.5-10.1); Carbon Dioxide 22.2 meq/L (21.0-32.0); Chloride 107 meq/L (98-107); Glomerular Filtration Rate 32 mL/min (>89); Glucose,Random 178 mg/dL (74-106); Lipase 97 U/L (73-393); Potassium 3.7 meq/L (3.5-5.1); Sodium 140 meq/L (136-145)
[2018-01-07 09:23] LABS: Alanine Aminotransferase 18 U/L (10-53)
[2018-01-07 09:32] LABS: Alkaline Phosphatase 83 U/L (45-117); Creatine Kinase 178 U/L (26-192); Total Protein 8.5 g/dL (6.4-8.2)
[2018-01-07 09:44] LABS: Creatine Kinase MB 9.3 ng/mL (0.5-3.6)
--- NOTE | 2018-01-07 12:04 | NM ---
EXAM DATE: 01/07/2018 11:47 AM EST AGE/SEX: 62 years / Female INDICATIONS: Dyspnea. CLINICAL DATA: This is the patient's initial encounter. Patient reports that signs and symptoms have been present for 1 day and indicates a pain score of 0/10. MEDICAL/SURGICAL HISTORY: Chronic obstructive pulmonary disease. None. COMPARISON: C, CHEST 1V SINGLE AP, 01/07/2018. C, CHEST PA & LAT, 03/08/2017. . DOSE: 1.1 mCi Tc99m DTPA aerosol 8.7 mCi Tc99m MAA IV TECHNIQUE: Following five minutes of tidal breathing of DTPA aerosol, planar images of the lungs wer e performed in eight projections. The patient was then injected with MAA, and eight-view perfusion s can was performed. FINDINGS: Recent chest x-ray dated 01/07/2018 is available for comparison. Bilateral extensive air trapping is noted consistent with COPD. No ventilation/perfusion mismatches are noted. CONCLUSION: 1. Low probability for pulmonary embolism. 2. COPD. Electronically signed by: Narayan Barraza MD 01/07/2018 12:03 PM EST
[2018-01-07 12:09] LABS: ABG Base Excess -3.2 mmol/L (-2-2); ABG PCO2 42 mmHg (38-42); ABG PO2 65 mmHg (61-120)
[2018-01-07] MEDS: Sod Chloride 0.9% Inj 1,000 ML IV.CONT SCH (14:18)
--- NOTE | 2018-01-07 15:00 | P.HP ---
History of Present Illness Service: [facility] hospitalist service Primary Care Physician: Dr. Kessler Chief Complaint: Shortness of breath History of Present Illness: Patient is a 62-year-old female with known history of COPD, not O2 dependent, not steroid dependent who still smokes and states that she has cut down a lot to at least 1 pack a month, uses nebulization 4 times a day and another medication through nebulization every 12. Patient does not know the name of both medications. She follows with Dr. Kessler on a regular basis. Patient states that about a week ago complained of some congestion "sinus problems". Denies any fever. Yesterday complains of some shortness of breath and went to an urgent care clinic and was given a Medrol Dosepak and some antibiotics which sounds like ciprofloxacin. Today complained of increasing shortness of breath, 911 was called and reportedly O2 sats was 86% at room air. And was brought into the ER and on ER notes noted diffuse wheezing and rhonchi. A stat ABG shows acute respiratory acidosis and patient was placed on BiPAP for a few hours with marked improvement clinically and. ABG- ph improved. Patient admitted for further evaluation and management. Patient denies any fever, chills, denies any sputum production. As stated was placed on some antibiotics and steroids For "sinus problem" Patient states that recently has been anxious and when asked she said that her son is getting this Saturday and daughter also had a son recently and They are scheduled to fly to [place] today this 5:30 PM. Patient does not feel like she really wants to go. Now on exam patient is comfortable at 1-2 L/min per nasal cannula. Lung exam shows no rales no wheezing no rhonchi. CTA negative for pulmonary emoblism Surgical history include gallbladder surgery some colon resection . Family history if non contributory Inpatient Certification: I certify that the inpatient services were ordered in accordance with Medicare regulations governing the order. This includes certification that hospital inpatient services are reasonable and necessary and in the case of services not specified as inpatient-only under 42 CFR 419.22(n), that they are appropriately provided as inpatient services in accordance to with the 2-midnight benchmark under 43 CFR 412.3(e) Estimated Total Length of Stay (Days): 2 Plans for Post Hospital Care: Not yet determined Review of Systems Denies any fever chills no sputum production Complain of some sinus congestion Denies any reflux symptoms No urinary symptoms No diarrhea No leg swelling PMFSH - History History Provided By: Patient - Medical History Medical History: Medical History (Last Reviewed 01/07/18 @ 08:21 by Brendan Irvin) COPD (chronic obstructive pulmonary disease) - Social History I have reviewed the patient's Social History: Yes - Tobacco History Second Hand Smoke Exposure: No Tobacco Use In Past 30 Days: Yes Smoking Status: Current every day smoker Tobacco Type: Cigarettes - Alcohol History How Often Do You Have a Drink Containing Alcohol: Never - Substance Use History Substance History: No History of Abuse - Travel History Recent Travel in the [place] Within the Last 8 Weeks: No Recent Travel Out of the Country Within the Last 8 Weeks: No - Immunization History Tetanus Immunization: Unsure Hx Influenza Vaccine This Season: Yes Medications and Allergies Active Medications: Active Medications Albuterol (Duoneb Neb (Luis Enrique)) 1 ampul NEB Q6HR NEB LUIS ENRIQUE Sodium Chloride (Ns Inj) 1,000 mls @ 60 mls/hr IV.CONT .[id number] LUIS ENRIQUE Last Admin: 01/07/18 14:18 Dose: 60 mls/hr Sodium Chloride (Ns Flush) 2 ml IV.FLUSH UNSCH PRN PRN Reason: FLUSH AFTER USING IV ACCESS Allergies Allergy/AdvReac Type Severity Reaction Status Date / Time No Known Allergies Allergy Verified 01/07/18 08:10 Home Medications Medication Instructions Recorded Confirmed Type albuterol sulfate 2.5 mg INHALATION Q4H PRN 01/07/18 01/07/18 History Exam Vital signs: Vital Signs 01/07/18 07:45 01/07/18 08:12 01/07/18 08:15 Temperature 97.0 F L Pulse Rate 98 H 95 H 92 H Respiratory Rate 28 H 26 H 23 Blood Pressure 169/75 H 185/88 H Pulse Oximetry 85 L 92 L 96 01/07/18 09:07 01/07/18 09:26 01/07/18 10:44 Temperature Pulse Rate 88 Respiratory Rate 20 Blood Pressure 186/88 H Pulse Oximetry 100 01/07/18 11:07 01/07/18 12:53 01/07/18 12:54 Temperature Pulse Rate 87 86 Respiratory Rate 20 21 Blood Pressure 165/76 H 146/70 H Pulse Oximetry 100 99 99 Intake & Output 01/06/18 01/07/1801/07/18 18:59 06:59 18:59 Weight 35.5 kg Other: Weight On Admission 38.555 kg Narrative: Awake alert not in any form of acute distress, speech clear Anicteric sclerae Throat no exudates no thrush Neck supple Chest/lungs decreased breath sounds no rales no wheezes no rhonchi Regular rhythm Abdomen soft nontender with good bowel sounds Extremities no edema good peripheral pulses Neurologic exam unremarkable Results - Labs CBC & Chem 7: 01/07/18 08:18 01/08/18 13:00 Labs: Laboratory Results - last 24 hr 01/07/18 01/07/18 01/07/18 08:18 08:18 08:18 WBC 19.4 H RBC 4.90 Hgb 15.0 Hct 45.4 MCV 92.8 MCH 30.7 MCHC 33.1 RDW 14.2 Plt Count 452 H MPV 7.1 Neut % (Auto) 89.4 H Lymph % (Auto) 3.0 L [place] % (Auto) 7.6 Eos % (Auto) 0.0 Baso % (Auto) 0.0 Neut # (Auto) 17.4 H Lymph # (Auto) 0.6 L [place] # (Auto) 1.5 H Eos # (Auto) 0.0 Baso # (Auto) 0.0 WBC Differential . Differential Comment Auto diff final PT 10.7 INR 1.1 APTT 23.6 Puncture Site Patient Temperature O2 Saturation ABG pH ABG pCO2 ABG pO2 ABG HCO3 ABG O2 Content ABG Base Excess ABG Methemoglobin Cuco Test Hemoglobin Carboxyhemoglobin O2 Delivery Device Liter Flow Critical Value Sodium Potassium Chloride Carbon Dioxide Anion Gap BUN Creatinine Estimated GFR Random Glucose Calcium Total Bilirubin AST ALT Alkaline Phosphatase Total Creatine Kinase CK-MB (CK-2) Troponin I B-Natriuretic Peptide 83 Total Protein Albumin Lipase TSH Serum Alcohol 01/07/18 01/07/18 01/07/18 08:18 08:20 12:00 WBC RBC Hgb Hct MCV MCH MCHC RDW Plt Count MPV Neut % (Auto) Lymph % (Auto) [place] % (Auto) Eos % (Auto) Baso % (Auto) Neut # (Auto) Lymph # (Auto) [place] # (Auto) Eos # (Auto) Baso # (Auto) WBC Differential Differential Comment PT INR APTT Puncture Site Right brachial Right brachial Patient Temperature 98.6 98.6 O2 Saturation 91 89 L* ABG pH 7.24 L* 7.33 L ABG pCO2 56 H* 42 ABG pO2 84 65 ABG HCO3 23 22 ABG O2 Content 17.6 16.2 ABG Base Excess -3.4 L -3.2 L ABG Methemoglobin 0.7 0.8 Cuco Test Present Present Hemoglobin 13.6 12.9 Carboxyhemoglobin 2.3 1.8 O2 Delivery Device Nasal cannula Nasal cannula Liter Flow 2.00 2.00 Critical Value Yes Yes Sodium 140 Potassium 3.7 Chloride 107 Carbon Dioxide 22.2 Anion Gap 11 BUN 28 H Creatinine 1.64 H Estimated GFR 32 L Random Glucose 178 H Calcium 9.1 Total Bilirubin 0.3 AST 18 ALT 18 Alkaline Phosphatase 83 Total Creatine Kinase 178 CK-MB (CK-2) 9.3 H Troponin I Less than 0.02 L B-Natriuretic Peptide Total Protein 8.5 H Albumin 4.6 Lipase 97 TSH 4.810 H Serum Alcohol Less than 3 - Imaging Impressions Chest X-Ray 01/07/18 08:09 CONCLUSION: Advanced COPD. Pulmonary Perfusion Imaging 01/07/18 09:35 CONCLUSION: 1. Low probability for pulmonary embolism. 2. COPD. Caprini VTE Risk Assessment Caprini VTE Risk Assessment: Moderate/High Risk (score >= 2) Caprini Risk Assessment Model: Point Value = 1 Point Value = 2 Point Value = 3 Point Value = 5 Age 41-60 Minor surgery BMI > 25 kg/m2 Swollen legs Varicose veins or History of unexplained or recurrent spontaneous Oral contraceptives or hormone replacement Sepsis (< 1 month) Serious lung disease, including pneumonia (< 1 month) Abnormal pulmonary function Acute myocardial infarction Congestive heart failure (< 1 month) History of inflammatory bowel disease Medical patient at bed rest Age 61-74 Arthroscopic surgery Major open surgery (> 45 min) Laparoscopic surgery (> 45 min) Malignancy Confined to bed (> 72 hours) Immobilizing plaster cast Central venous access Age >= 75 History of VTE Family history of VTE Factor V Leiden Prothrombin [id number] Lupus anticoagulant Anticardiolipin antibodies Elevated serum homocysteine Heparin-induced thrombocytopenia Other congenital or acquired thrombophilia Stroke (< 1 month) Elective arthroplasty Hip, pelvis, or leg fracture Acute spinal cord injury (< 1 month) Prophylaxis Regimen: Total Risk Factor Score Risk Level Prophylaxis Regimen 0-1 Low Early ambulation 2 Moderate Order ONE of the following: *Sequential Compression Device (SCD) *Heparin 5000 units SQ BID 3-4 Higher Order ONE of the following medications: *Heparin 5000 units SQ TID *Enoxaparin/Lovenox 40 mg SQ daily (WT < 150 kg, CrCl > 30 mL/min) *Enoxaparin/Lovenox 30 mg SQ daily (WT < 150 kg, CrCl > 10-29 mL/min) *Enoxaparin/Lovenox 30 mg SQ BID (WT < 150 kg, CrCl > 30 mL/min) AND/OR *Sequential Compression Device (SCD) 5 or more Highest Order ONE of the following medications: *Heparin 5000 units SQ TID (Preferred with Epidurals) *Enoxaparin/Lovenox 40 mg SQ daily (WT < 150 kg, CrCl > 30 mL/min) *Enoxaparin/Lovenox 30 mg SQ daily (WT < 150 kg, CrCl > 10-29 mL/min) *Enoxaparin/Lovenox 30 mg SQ BID (WT < 150 kg, CrCl > 30 mL/min) AND *Sequential Compression Device (SCD) Assessment and Plan - Plan 62-year-old female Acute respiratory failure with Acute respiratory acidosis and Hypoxemia COPD exacerbation- Acute respiratory acidosis -improved after being on BiPAP for 2 hours -Changed to p.o. prednisone short course. lori MINOR! 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 -We will do a walk test prior to discharge to see if patient qualifies for home oxygen - o2 NC 1-2 LPM keep sats greater than 90% Leukocytosis most likely from steroid induced. - Patient was placed on Medrol Dosepak as outpatient Saturday -Chest x-ray clear Acute kidney injury -Gentle hydration. -BMP in a.m. Some elevated BP readings- now states her BP gets high whenever she goes to her doctor ? White coat hypertension - monitor, some anxiety component - may eventually benefit from some anxiety medications Lovenox for DVT prophylaxis PPI for GI prophylaxis
[2018-01-07] MEDS: predniSONE 20 MG Tablet PO SCH (17:18)
--- NOTE | 2018-01-07 18:03 | ECG ---
Date Performed: 01/07/2018 Time Performed: 08:28:16 PTAGE: 62 years EKG: Sinus rhythm RIGHT ATRIAL ENLARGEMENT LEFT ATRIAL ENLARGEMENT POSSIBLE RIGHT VENTRICULAR HYPERTROPHY MODERATE ST DEPRESSION SIGNIFICANT BASELINE ARTIFACT ABNORMAL ECG Compared to PREVIOUS TRACING , likely no significant change. PREVIOUS TRACIN03/08/2017 13.57 DOCTOR: Tonya Gaston Interpretating Date/Time 01/07/2018 18:01:36
--- NOTE | 2018-01-07 18:06 | MB ---
cc: Checo Kessler MD DATE: 01/07/2018 REASON FOR CONSULTATION: COPD exacerbation. HISTORY OF PRESENT ILLNESS: Ms. Vicente is a 62-year-old, female with a known history of COPD, continues to smoke up until the time of admission, complaining of increasing shortness of breath, wheeze, no expectoration, no fever, no chills, no hemoptysis. She came to the emergency room, was placed initially on BiPAP therapy for acute respiratory distress, now feeling better. She is chronically short of breath, on oxygen therapy as mentioned above. PAST MEDICAL HISTORY: 1. COPD, as mentioned above. SOCIAL HISTORY: Smokes a pack of cigarettes a day, continues to smoke until present, does not drink any alcohol, does not use drugs. No TB, no industrial exposure. FAMILY HISTORY: Noncontributory. MEDICATIONS: Include: 1. Nebulized albuterol 2. Ipratropium. 3. Prednisone 20 mg twice daily. 4. Pantoprazole. 5. Enoxaparin prophylaxis. ALLERGIES: NONE KNOWN TO MEDICATION. REVIEW OF SYSTEMS: A 12-point review of systems as per HPI and past history, otherwise negative. PHYSICAL EXAMINATION: GENERAL: The patient is alert. VITAL SIGNS: Temperature 98, pulse 86, respirations 20, blood pressure 140/70, oxygen saturation 99% on 3 liters oxygen nasal cannula. HEENT: Unremarkable. Eyes without icterus. NECK: Without adenopathy, thyroid enlargement. Central trachea. CHEST: Scattered wheeze bilaterally. CARDIAC: PMI distant. S1, S2 audible. No murmur. No rub. ABDOMEN: Lax, bowel sounds audible. EXTREMITIES: No clubbing, cyanosis or edema. LABORATORY DATA: Perfusion lung scan with low probability for pulmonary embolism suggestive of underlying chronic obstructive pulmonary disease. A chest x-ray was suggestive of severe COPD. No infiltrates appreciated. LABORATORY DATA: White count 19,000, hemoglobin 15, hematocrit 40.5, platelets 452. INR 1.1. ABG; pH 7.33, pCO2 of 42, pO2 65. Initial ABG upon presentation: pH 7.24 PCO2 56 and the pO2 of 84. Sodium 140, potassium 3.7, BUN 28, creatinine 1.6. IMPRESSION: 1. Chronic obstructive pulmonary disease in exacerbation. 2. Acute hypoxic , hypercapnc respiratory failure PLAN: Patient to continue oxygen therapy, bronchodilator therapy. She is indeed gradually improving and her hypercapnia is improving. She is on oral steroids at present and is doing well. Will increase her activity, and she seems ready at present for a transfer to medical floor; would observe overnight and if she does well, she may go to a medical floor setting. We will follow her course along with you and, depending on progress, proceed further. We will check her baseline pulmonary function. MD LUIGI Rangel/carole , 04:04 PM , 04:14 PM DEMI
[2018-01-07] MEDS: Tiotropium Bromide 18 MCG/ACT Inhaler INH SCH (21:20)
[2018-01-08] MEDS ORDERED: Chlorhexidine Gluconate 2% 1 Pack (2 Cloths) TOPICAL SCH (04:00)
[2018-01-08] MEDS ORDERED: Chlorhexidine Gluconate 2% 1 Pack (2 Cloths) TOPICAL PRN (04:00)
[2018-01-08] MEDS: Sod Chloride 0.9% Inj 1,000 ML IV.CONT SCH (05:02)
[2018-01-08] MEDS: predniSONE 20 MG Tablet PO SCH (05:03)
[2018-01-08 05:16] VITALS: TEMP 98.1
[2018-01-08 06:21] VITALS: BP 173/77
[2018-01-08 07:59] VITALS: PULSE 85; RESP 18
[2018-01-08 08:22] LABS: Calcium 8.6 mg/dL (8.5-10.1); Carbon Dioxide 25.4 meq/L (21.0-32.0)
--- NOTE | 2018-01-08 08:37 | P.PN ---
Subjective Interval history: awake and alert feeling better no sputum production no complains of nausea ,vomitng, hedahces ro cough Physical Exam Vital signs: Vital Signs 01/07/18 09:07 01/07/18 09:26 01/07/18 10:44 Temperature Pulse Rate 88 Respiratory Rate 20 Blood Pressure 186/88 H Pulse Oximetry 100 01/07/18 11:07 01/07/18 12:53 01/07/18 12:54 Temperature Pulse Rate 87 86 Respiratory Rate 20 21 Blood Pressure 165/76 H 146/70 H Pulse Oximetry 100 99 99 01/07/18 15:18 01/07/18 20:00 01/07/18 20:03 Temperature Pulse Rate 83 93 H Respiratory Rate 16 22 Blood Pressure Pulse Oximetry 100 100 01/07/18 21:00 01/07/18 22:00 01/07/18 23:00 Temperature 98.4 F 98.4 F 98.4 F Pulse Rate 89 84 86 Respiratory Rate 17 18 19 Blood Pressure 159/71 H 174/69 H 174/69 H Pulse Oximetry 98 98 98 01/08/18 00:00 01/08/18 01:00 01/08/18 02:00 Temperature 98.6 F 98.6 F 98 F Pulse Rate 82 76 75 Respiratory Rate 14 15 14 Blood Pressure 165/81 H 179/81 H 170/58 H Pulse Oximetry 100 100 100 01/08/18 03:00 01/08/18 04:00 01/08/18 04:44 Temperature 98 F 98 F Pulse Rate 74 65 84 Respiratory Rate 15 14 22 Blood Pressure 188/86 H 170/58 H Pulse Oximetry 100 100 01/08/18 05:00 01/08/18 06:00 01/08/18 07:58 Temperature 98.1 F 98.1 F Pulse Rate 75 70 85 Respiratory Rate 17 17 18 Blood Pressure 172/76 H 173/77 H Pulse Oximetry 100 100 01/08/18 07:59 Temperature Pulse Rate Respiratory Rate Blood Pressure Pulse Oximetry 96 Intake & Output 01/07/18 01/08/18 01/08/18 18:59 06:59 18:59 Intake Total 1240 / 1240 Output Total 300 / 300 Balance 940 / 940 Weight 35.5 kg 37 kg Intake: IV 1000 / 1000 NS Inj 1,000 ML @ 60 mls/hr IV. 1000 / 1000 CONT .[id number] [facility] Rx#:[id number] Oral 240 / 240 Output: Urine 300 / 300 Other: Date of Last Bowel Movement 01/06/18 Weight On Admission 38.555 kg Narrative: Awake alert not in any form of acute distress, speech clear Anicteric sclerae Throat no exudates no thrush Neck supple Chest/lungs decreased breath sounds no rales no wheezes no rhonchi Regular rhythm Abdomen soft nontender with good bowel sounds Extremities no edema good peripheral pulses Neurologic exam unremarkable Results - Labs CBC & Chem 7: 01/07/18 08:18 01/08/18 06:36 Laboratory Results - last 24 hr 01/07/18 01/07/18 01/07/18 08:18 08:18 08:18 WBC 19.4 H RBC 4.90 Hgb 15.0 Hct 45.4 MCV 92.8 MCH 30.7 MCHC 33.1 RDW 14.2 Plt Count 452 H MPV 7.1 Neut % (Auto) 89.4 H Lymph % (Auto) 3.0 L Borden % (Auto) 7.6 Eos % (Auto) 0.0 Baso % (Auto) 0.0 Neut # (Auto) 17.4 H Lymph # (Auto) 0.6 L Borden # (Auto) 1.5 H Eos # (Auto) 0.0 Baso # (Auto) 0.0 WBC Differential . Differential Comment Auto diff final PT 10.7 INR 1.1 APTT 23.6 Puncture Site Patient Temperature O2 Saturation ABG pH ABG pCO2 ABG pO2 ABG HCO3 ABG O2 Content ABG Base Excess ABG Methemoglobin Cuco Test Hemoglobin Carboxyhemoglobin O2 Delivery Device Liter Flow Critical Value Sodium Potassium Chloride Carbon Dioxide Anion Gap BUN Creatinine Estimated GFR Random Glucose Calcium Total Bilirubin AST ALT Alkaline Phosphatase Total Creatine Kinase CK-MB (CK-2) Troponin I B-Natriuretic Peptide 83 Total Protein Albumin Lipase TSH Nasal Screen MRSA (PCR) Serum Alcohol 01/07/18 01/07/18 01/07/18 08:18 12:00 16:00 WBC RBC Hgb Hct MCV MCH MCHC RDW Plt Count MPV Neut % (Auto) Lymph % (Auto) Borden % (Auto) Eos % (Auto) Baso % (Auto) Neut # (Auto) Lymph # (Auto) Borden # (Auto) Eos # (Auto) Baso # (Auto) WBC Differential Differential Comment PT INR APTT Puncture Site Right brachial Patient Temperature 98.6 O2 Saturation 89 L* ABG pH 7.33 L ABG pCO2 42 ABG pO2 65 ABG HCO3 22 ABG O2 Content 16.2 ABG Base Excess -3.2 L ABG Methemoglobin 0.8 Cuco Test Present Hemoglobin 12.9 Carboxyhemoglobin 1.8 O2 Delivery Device Nasal cannula Liter Flow 2.00 Critical Value Yes Sodium 140 Potassium 3.7 Chloride 107 Carbon Dioxide 22.2 Anion Gap 11 BUN 28 H Creatinine 1.64 H Estimated GFR 32 L Random Glucose 178 H Calcium 9.1 Total Bilirubin 0.3 AST 18 ALT 18 Alkaline Phosphatase 83 Total Creatine Kinase 178 CK-MB (CK-2) 9.3 H Troponin I Less than 0.02 L B-Natriuretic Peptide Total Protein 8.5 H Albumin 4.6 Lipase 97 TSH 4.810 H Nasal Screen MRSA (PCR) Not detected Serum Alcohol Less than 3 01/08/18 06:36 WBC RBC Hgb Hct MCV MCH MCHC RDW Plt Count MPV Neut % (Auto) Lymph % (Auto) B[place] % (Auto) Eos % (Auto) Baso % (Auto) Neut # (Auto) Lymph # (Auto) Borden # (Auto) Eos # (Auto) Baso # (Auto) WBC Differential Differential Comment PT INR APTT Puncture Site Patient Temperature O2 Saturation ABG pH ABG pCO2 ABG pO2 ABG HCO3 ABG O2 Content ABG Base Excess ABG Methemoglobin Cuco Test Hemoglobin Carboxyhemoglobin O2 Delivery Device Liter Flow Critical Value Sodium 144 Potassium 3.0 L Chloride 109 H Carbon Dioxide 25.4 Anion Gap 10 BUN 25 H Creatinine 1.00 Estimated GFR 56 L Random Glucose 134 H Calcium 8.6 Total Bilirubin AST ALT Alkaline Phosphatase Total Creatine Kinase CK-MB (CK-2) Troponin I B-Natriuretic Peptide Total Protein Albumin Lipase TSH Nasal Screen MRSA (PCR) Serum Alcohol - Imaging Impressions Chest X-Ray 01/07/18 08:09 CONCLUSION: Advanced COPD. Pulmonary Perfusion Imaging 01/07/18 09:35 CONCLUSION: 1. Low probability for pulmonary embolism. 2. COPD. Assessment and Plan - Plan 62-year-old female Acute respiratory failure with Acute respiratory acidosis and Hypoxemia- IMproved COPD exacerbation- Acute respiratory acidosis -improved after being on BiPAP for 2 hours -prednisone short 20 mg bid . lori MINOR! 1 puff daily -Some anxiety component-patient sounds like she does not want to travel to [place] because it is "too cold there" -Her senior validation engineer Dr. Kessler is consulted. -We will do a walk test today prior to discharge to see if patient qualifies for home oxygen - Anxiety - started on byuspar 7.5 mg bid Leukocytosis most likely from steroid induced. - Patient was placed on Medrol Dosepak as outpatient Saturday -Chest x-ray clear Acute kidney injury- improved -Gentle hydration. -BMP in a.m. Hypokalemia - give x 1 10 meq IV - give KCL 30 meq po x 1 - OP ff up with repeat BMP Hypertension Essential - start her on amloidpine 2.5 mg daily Mildly Elevated TSH - check free hormones- free T3.free T4 - recheck TSH in 6 weeks as OP Lovenox for DVT prophylaxis PPI for GI prophylaxis Increase activity/amublate a =nsd get a walk test Transfer to floor if stable this pm- DC
[2018-01-08] MEDS: Tiotropium Bromide 18 MCG/ACT Inhaler INH SCH (08:52)
[2018-01-08] MEDS ORDERED: Enoxaparin Inj 30 MG/0.3 ML Syringe SQ SCH (09:00)
[2018-01-08] MEDS ORDERED: amLODIPine 5 MG Tablet PO SCH (09:00)
[2018-01-08 09:53] LABS: Free T4 (Free Thyroxine) 0.91 ng/dL (0.76-1.46); Triiodothyronine (T3) Free 1.36 pg/mL (2.18-3.98)
[2018-01-08] MEDS ORDERED: Potassium Chlor 10 mEq Premix 10 MEQ/100 ML PIGGYBACK IV.SIG ONE (10:00)
[2018-01-08 13:41] VITALS: O2SAT 95
== END 2018-01-08 15:15 | disposition home health service (06) ==
LOC: NEPE 07:33 → NEDA 12:42 → HIMC 13:30
PROVIDERS: ADMIT Internal Medicine; ATTEND Internal Medicine